=== PATIENT | male | born 1955 | race Caucasian/White ===

== ENCOUNTER 2021-09-30 11:46 | Outpatient (CLI) | payer MEDICARE, MEDICAID, SELFPAY | END 2021-09-30 11:47 | disposition home or self-care (01) | LOC: CHSOUTPT 11:57 | PROVIDERS: PCP Family Medicine; Visit Provider Specialist | DX: C44.519 Basal cell carcinoma of skin of other part of trunk (principal); C44.612 Basal cell carcinoma of skin of right upper limb, including shoulder | CPT/HCPCS: 88305 ==

== ENCOUNTER 2021-11-25 12:38 | Outpatient (CLI) | payer MEDICARE, MEDICAID, SELFPAY | END 2021-11-25 12:39 | disposition home or self-care (01) | LOC: CHSLAB 12:42 | PROVIDERS: PCP Family Medicine; Visit Provider Specialist | DX: C44.329 Squamous cell carcinoma of skin of other parts of face (principal); C44.319 Basal cell carcinoma of skin of other parts of face | CPT/HCPCS: 88305 ==

== ENCOUNTER 2021-12-30 13:32 | Outpatient (CLI) | payer MEDICARE, MEDICAID, SELFPAY | END 2021-12-30 13:33 | disposition home or self-care (01) | LOC: CHSOUTPT 13:42 | PROVIDERS: PCP Family Medicine; Visit Provider Specialist | DX: L72.0 Epidermal cyst (principal) | CPT/HCPCS: 88305 ==

== ENCOUNTER 2022-06-30 12:53 | Outpatient (CLI) | payer MEDICARE, MEDICAID, SELFPAY | END 2022-06-30 12:54 | disposition home or self-care (01) | LOC: CHSLAB 12:56 | PROVIDERS: PCP Specialist; Visit Provider Specialist | DX: C44.329 Squamous cell carcinoma of skin of other parts of face (principal) | CPT/HCPCS: 88305 ==

== ENCOUNTER 2022-11-03 13:59 | Outpatient (CLI) | payer MEDICARE, MEDICAID, SELFPAY | END 2022-11-03 14:00 | disposition home or self-care (01) | PROVIDERS: PCP Family Medicine; Visit Provider Specialist | DX: C44.519 Basal cell carcinoma of skin of other part of trunk (principal); C44.329 Squamous cell carcinoma of skin of other parts of face; C44.612 Basal cell carcinoma of skin of right upper limb, including shoulder | CPT/HCPCS: 88305 ==